=== PATIENT | male | born 1940 | race Caucasian/White ===

== ENCOUNTER 2018-12-09 14:29 | Emergency (ER) | payer MEDICARE ==
[~2018-12-09] VITALS: Ht 172.7 cm; Wt 78.9 kg
[2018-12-09 15:26] LABS: BASOPHILS ABSOLUTE AUTO 0.04 K/mm3 (0.00-0.23); BASOPHILS PERCENT AUTO 1 % (0-2); EOSINOPHILS ABSOLUTE AUTO 0.08 K/mm3 (0.00-0.68); EOSINOPHILS PERCENT AUTO 1 % (0-6); Hematocrit 41.6 % (37.0-53.0); Hemoglobin 13.6 g/dL (13.5-17.5); IMMATURE GRAN ABSOLUTE AUTO 0.01 K/mm3 (0.00-0.10); IMMATURE GRAN PERCENT AUTO 0 % (0-1); LYMPHOCYTES ABSOLUTE AUTO 1.61 K/mm3 (0.84-5.20); LYMPHOCYTES PERCENT AUTO 26 % (21-46); MONOCYTES ABSOLUTE AUTO 0.45 K/mm3 (0.16-1.47); MONOCYTES PERCENT AUTO 7 % (4-13); Mean Corpuscular HGB 28.8 pg (26.0-34.0); Mean Corpuscular HGB Conc 32.7 g/dL (31.5-36.5); Mean Corpuscular Volume 88 fL (80-100); Mean Platelet Volume 10.9 fL (9.1-12.4); NEUTROPHILS ABSOLUTE AUTO 4.11 K/mm3 (1.96-9.15); NEUTROPHILS PERCENT AUTO 65 % (41-73); Platelet Count 267 K/mm3 (150-400); RDW Coefficient Variation 12.7 % (11.7-14.2); Red Blood Cell Count 4.72 M/mm3 (4.30-5.90)
[2018-12-09 15:51] LABS: Alanine Aminotransfer (ALT/SGP 17 U/L (12-78); Albumin/Globulin Ratio 1.1 (0.8-1.8); Alk Phos 64 U/L (50-136); Anion Gap 7 mmol/L (6-16); Aspartate Aminotrans (AST/SGOT 15 U/L (12-37); Bilirubin, Total 0.3 mg/dL (0.1-1.0); Blood Urea Nitrogen 13 mg/dL (8-24); Bun/Creatinine Ratio 12.4 (12.0-20.0); CO2, Blood 26 mmol/L (21-32); Calcium, Blood 8.9 mg/dL (8.5-10.1); Chloride, Blood 107 mmol/L (98-108); Creatinine, Blood 1.05 mg/dL (0.60-1.20); Globulin, Blood 3.5 g/dL (2.2-4.0); Glomerular Filtration Rate >60 (60-); Glucose, Blood 91 mg/dL (70-99); Sodium, Blood 140 mmol/L (136-145); Total Protein, Blood 7.5 g/dL (6.4-8.2); Troponin I <0.015 ng/mL (0.000-0.040)
[2018-12-09 17:28] LABS: Source, Urine Clean Catch
[2018-12-09 17:39] LABS: Appearance, Urine Clear (Clear); Bilirubin, Urine Neg (Neg); Blood, Urine Neg (Neg); Color, Urine Yellow (P-Yellow); Glucose Qualitative, Urine Neg (Neg); Ketones, Urine 1+ (Neg); Leukocyte Esterase, Urine Neg (Neg); Nitrite, Urine Neg (Neg); Protein, Urine Neg (Neg); Specific Gravity, Urine 1.015 (1.003-1.022); Urobilinogen, Urine NORM (Normal)
== END 2018-12-09 17:50 | disposition home or self-care (01) ==
LOC: ER 14:29
PROVIDERS: Physician Assistant
DX: S06.0X9A Concussion with loss of consciousness of unspecified duration, initial encounter (principal); I44.0 Atrioventricular block, first degree; R00.1 Bradycardia, unspecified; Z96.651 Presence of right artificial knee joint; Z87.891 Personal history of nicotine dependence; W19.XXXA Unspecified fall, initial encounter
CPT/HCPCS: 36415; 70450; 71046; 72125; 80053; 81003; 84484; 85025; 93005; 93010; 99285-25

== ENCOUNTER 2021-10-01 12:15 | Emergency (ER) | payer MEDICARE ==
[~2021-10-01] VITALS: Ht 170.2 cm; Wt 79.4 kg
== END 2021-10-01 15:44 | disposition home or self-care (01) ==
LOC: ER 12:15
DX: S06.9X1A Unspecified intracranial injury with loss of consciousness of 30 minutes or less, initial encounter (principal); S01.01XA Laceration without foreign body of scalp, initial encounter; Z23 Encounter for immunization; Z88.7 Allergy status to serum and vaccine; Z87.891 Personal history of nicotine dependence; W17.89XA Other fall from one level to another, initial encounter
CPT/HCPCS: 12002; 70450; 90471; 99283-25; J1670

== ENCOUNTER 2021-10-07 13:14 | Emergency (ER) | payer MEDICARE ==
[~2021-10-07] VITALS: Ht 170.2 cm; Wt 84.8 kg
== END 2021-10-07 13:24 | disposition home or self-care (01) ==
LOC: ER 13:14
DX: S01.01XD Laceration without foreign body of scalp, subsequent encounter (principal); Z88.7 Allergy status to serum and vaccine

== ENCOUNTER 2021-10-21 10:38 | Emergency (ER) | payer MEDICARE ==
[~2021-10-21] VITALS: Ht 172.7 cm; Wt 79.4 kg
== END 2021-10-21 10:54 | disposition home or self-care (01) ==
LOC: ER 10:38
DX: S01.01XD Laceration without foreign body of scalp, subsequent encounter (principal); Z87.891 Personal history of nicotine dependence

== ENCOUNTER 2023-02-17 09:59 | Day surgery (SDC) | payer MEDICARE ==
[~2023-02-17] VITALS: Ht 170.2 cm; Wt 84.1 kg
[~2023-02-17 09:59] MED LIST: ASPIR 8181 M1 PO
--- NOTE | 2023-02-17 11:13 | NUR ---
02/17/23 1113 JAILYN FALCON TETRECAINE:[id number] PLEDGIT :110
--- NOTE | 2023-02-17 13:53 | NUR ---
02/17/23 1353 Eleazar Wagner PT EXPERIENCED OCCASIONAL PVCS PREOPERATIVELY, PER MALLY LOCKWOOD. EFRA WILLIAM APPROVED PT'S DISCHARGE WITH PVCS AND STABLE VITALS LONG HE HAD NO CARDIAC SYMPTOMS, ACCORDING TO REPORT FROM MALLY LOCKWOOD . PT DENIED CARDIAC SYMPTOMS INCLUDING DIZZINESS, SOB, OR CHEST PAIN IN STEP DOWN. VITALS WERE STABLE. THREE LEAD EKG PERFORMED IN STEP DOWN APPEARED SIMILAR TO BASELINE EKG.
== END 2023-02-17 12:45 | disposition home or self-care (01) ==
LOC: ORSCSDS 09:59
PROVIDERS: Ophthalmology
PROC: 08RK3JZ Replacement of Left Lens with Synthetic Substitute, Percutaneous Approach (ICD-10-PCS; principal; 2023-02-17 11:30)
DX: H25.12 Age-related nuclear cataract, left eye (principal); Z96.1 Presence of intraocular lens; H52.202 Unspecified astigmatism, left eye
CPT/HCPCS: J2001; J2250; J3010; J3301; J7040; V2632

== ENCOUNTER 2023-12-13 10:38 | Day surgery (SDC) | payer MEDICARE ==
[~2023-12-13] VITALS: Ht 170.2 cm; Wt 83.1 kg
[2023-12-13] MEDS ORDERED: IBUPROFEN IB200 MG PO (11:45)
--- NOTE | 2023-12-13 12:08 | NUR ---
12/13/23 1208 Kailey Singh 1207: TIMEOUT COMPLETED
[2023-12-13 13:10] VITALS: BP 151/67
== END 2023-12-13 13:41 | disposition home or self-care (01) ==
LOC: ORSCSDS 10:38
PROVIDERS: Orthopaedic Surgery
PROC: 01N54ZZ Release Median Nerve, Percutaneous Endoscopic Approach (ICD-10-PCS; principal; 2023-12-13 12:00)
DX: G56.01 Carpal tunnel syndrome, right upper limb (principal); Z87.891 Personal history of nicotine dependence; Z79.82 Long term (current) use of aspirin; Z79.899 Other long term (current) drug therapy
CPT/HCPCS: J2250; J7120